=== PATIENT | female | born 1995 | race Caucasian/White ===

== ENCOUNTER 2016-11-02 05:44 | Outpatient (CLI) | payer OTHER, MEDICAID ==
[~2016-11-02] VITALS: Ht 160 cm; Wt 85.0 kg
[~2016-11-02 05:44] MED LIST: ONDA4TAB10 PO; PREN-1 PO; PRENATAL; SUMA25TA3 PO
[2016-11-02 05:53] VITALS: BP 135/80
[2016-11-02] MEDS ORDERED: HYDROcodone/APAP 5/325 TABLET ONE (06:08)
[2016-11-02] MEDS ORDERED: HYDROcodone/APAP 5/325 TABLET PO ONE (07:00)
== END 2016-11-02 06:35 | disposition home or self-care (01) ==
LOC: LDOP 05:44
PROVIDERS: ATTEND Student in an Organized Health Care Education/Training Program
DX: O26.893 Other specified pregnancy related conditions, third trimester (principal); O62.9 Abnormality of forces of labor, unspecified; R10.12 Left upper quadrant pain; R07.81 Pleurodynia; Z3A.38 38 weeks gestation of pregnancy
CPT/HCPCS: 59025; 99211; G0463

== ENCOUNTER 2016-11-09 17:05 | Outpatient (CLI) | payer OTHER, MEDICAID ==
[2016-11-09] MEDS ORDERED: MEPERIDINE/PF 100 MG/ML ONE (20:56)
[2016-11-09] MEDS ORDERED: PROMETHAZINE 25 MG/ML, 1ML ONE (20:57)
[2016-11-09] MEDS ORDERED: MEPERIDINE/PF 50 MG/ML IM PRN (21:00)
[2016-11-09] MEDS ORDERED: PROMETHAZINE 25 MG/ML, 1ML IM ONE (21:00)
[2016-11-09] MEDS ORDERED: MEPERIDINE/PF 100 MG/ML IM ONE (21:10)
== END 2016-11-09 21:20 | disposition home or self-care (01) ==
LOC: LDOP 17:05
PROVIDERS: ATTEND Student in an Organized Health Care Education/Training Program
DX: O26.893 Other specified pregnancy related conditions, third trimester (principal); O62.9 Abnormality of forces of labor, unspecified; R10.9 Unspecified abdominal pain; Z3A.39 39 weeks gestation of pregnancy
CPT/HCPCS: 59025; 99211; J2175; J2550; G0463

== ENCOUNTER 2016-11-10 04:02 | Inpatient (IN) | payer OTHER, MEDICAID ==
[~2016-11-10] VITALS: Ht 160 cm; Wt 82.7 kg
[2016-11-10] MEDS ORDERED: FENTANYL PF 100 MCG/2ML ONE (05:31)
[2016-11-10] MEDS ORDERED: LACTATED RINGERS 1,000 ML IV SCH (05:31)
[2016-11-10] MEDS ORDERED: D5%-LACTATED RINGERS 1,000 ML IV SCH (05:31)
[2016-11-10] MEDS ORDERED: OXYTOCIN 30U/ 0.9% NaCL 500ML 500 ML IV ONE (05:31)
[2016-11-10] MEDS ORDERED: NEWBORN KIT ONE (05:45)
[2016-11-10] MEDS ORDERED: OXYTOCIN 30U/ 0.9% NaCL 500ML 500 ML ONE (05:45)
[2016-11-10] MEDS ORDERED: FENTANYL PF 100 MCG/2ML IVPush PRN (06:00)
[2016-11-10] MEDS ORDERED: TERBUTALINE 1 MG/ML, 1ML IVPush PRN (06:00)
[2016-11-10] MEDS ORDERED: FENTANYL PF 100 MCG/2ML IV PRN (06:00)
[2016-11-10] MEDS ORDERED: ONDANSETRON 2MG/ML, 2ML IVPush PRN (06:00)
[2016-11-10] MEDS ORDERED: LIDOCAINE 1%, 20ML ONE (06:16)
[2016-11-10] MEDS ORDERED: MISOPROSTOL 200 MCG TABLET ONE (06:16)
[2016-11-10] MEDS ORDERED: OXYTOCIN 30U/ 0.9% NaCL 500ML 500 ML IV SCH (07:37)
[2016-11-10] MEDS ORDERED: MISOPROSTOL 200 MCG TABLET PR PRN (08:00)
[2016-11-10] MEDS ORDERED: HYDROcodone/APAP 5/325 TABLET PO PRN ×2 (08:00)
[2016-11-10] MEDS ORDERED: ONDANSETRON 2MG/ML, 2ML IV PRN (08:00)
[2016-11-10] MEDS ORDERED: CALCIUM CARBONATE 500 MG TAB.CHEW PO PRN (08:00)
[2016-11-10] MEDS ORDERED: METHYLERGONOVINE 0.2 MG/ML IM PRN (08:00)
[2016-11-10] MEDS ORDERED: CARBOPROST TROMETHAMINE 250 MCG/ML, 1ML IM PRN (08:00)
[2016-11-10] MEDS ORDERED: DOCUSATE 100 MG CAPSULE PO PRN (08:00)
[2016-11-10 09:00] VITALS: BP 110/73
[2016-11-10] MEDS ORDERED: PRENATAL VIT/IRON/FA 1 EACH TABLET PO SCH (09:00)
[2016-11-10 12:45] VITALS: BP 102/60
[2016-11-10] MEDS: IBUPROFEN 600 MG TABLET PO PRN (15:29)
[2016-11-10 18:11] VITALS: BP 114/79
[2016-11-10 20:00] VITALS: BP 122/80
[2016-11-11] VITALS: BP 110/68
[2016-11-11 08:15] VITALS: BP 122/85
[2016-11-11] MEDS: IBUPROFEN 600 MG TABLET PO PRN (08:37)
[2016-11-11] MEDS ORDERED: IBUP-1222 PO (11:11)
[2016-11-11] MEDS ORDERED: DOCU-30 PO (11:11)
== END 2016-11-11 15:10 | disposition home or self-care (01) | DRG 775 ==
LOC: LDOP 04:02 → LDIP 05:38 → 2NW 08:50
PROVIDERS: ADMIT Student in an Organized Health Care Education/Training Program; ATTEND Student in an Organized Health Care Education/Training Program
PROC: 10E0XZZ Delivery of Products of Conception, External Approach (ICD-10-PCS; principal; 2016-11-10)
PROC: 0HQ9XZZ Repair Perineum Skin, External Approach (ICD-10-PCS; 2016-11-10)
DX: O62.3 Precipitate labor (principal); O70.0 First degree perineal laceration during delivery; Z37.0 Single live birth; Z81.8 Family history of other mental and behavioral disorders; Z3A.39 39 weeks gestation of pregnancy
CPT/HCPCS: 36415; 85025; 86850; 86900; J3010; J7120

== ENCOUNTER 2016-11-13 17:11 | Emergency (ER) | payer OTHER, MEDICAID ==
[~2016-11-13] VITALS: Ht 162.6 cm; Wt 71.6 kg
[~2016-11-13 17:11] MED LIST changes: +DOCU-30 PO; +IBUP-1222 PO
[2016-11-13] MEDS ORDERED: ONDANSETRON 2MG/ML, 2ML IVPush ONE (18:00)
[2016-11-13] MEDS ORDERED: SODIUM CHLORIDE FLUSH 10ML SYR IVF ONE (18:00)
[2016-11-13] MEDS ORDERED: SODIUM CHLORIDE 0.9% 1,000ML IVBOLUS ONE (18:00)
[2016-11-13] MEDS ORDERED: ACETAMINOPHEN 500 MG TABLET PO ONE (18:00)
[2016-11-13] MEDS ORDERED: ONDANSETRON 2MG/ML, 2ML ONE (18:35)
[2016-11-13] MEDS ORDERED: ACETAMINOPHEN 500 MG TABLET ONE (18:35)
[2016-11-13 18:36] LABS: ASPARTATE AMINO TRANSFERASE 35 U/L (15-37); BLOOD UREA NITROGEN 9 mg/dL (7-18)
[2016-11-13 19:15] LABS: PATH.CAST-FLAG NOT PRESENT; SPERM-FLAG NOT PRESENT; SRC-FLAG NOT PRESENT; XTAL-FLAG NOT PRESENT; YLC-FLAG NOT PRESENT
[2016-11-13] MEDS ORDERED: CEFTRIAXONE 1,000 MG in SODIUM CHLORIDE 0.9% 50 ML IV ONE (20:00)
[2016-11-13] MEDS ORDERED: MISOPROSTOL 100 MCG TABLET PO STA (20:27)
[2016-11-13 21:56] VITALS: BP 126/85
== END 2016-11-13 21:58 | disposition home or self-care (01) ==
LOC: ED 21:00
DX: O36.4XX0 Maternal care for intrauterine death, not applicable or unspecified (principal); Z37.9 Outcome of delivery, unspecified; N30.00 Acute cystitis without hematuria
CPT/HCPCS: 36415; 71010; 76830; 80053; 81001; 83605; 85025; 87040; 87086; 93005; 96361; 96365; 99285; J0696; J7030

== ENCOUNTER 2020-03-23 10:37 | Emergency (ER) | payer MEDICAID ==
[~2020-03-23] VITALS: Ht 162.6 cm; Wt 85.0 kg
[~2020-03-23 10:37] MED LIST changes: +DOCU-131 PO; -DOCU-30 PO
[2020-03-23] MEDS ORDERED: ONDANSETRON 2MG/ML, 2ML IVPush ONE (11:00)
[2020-03-23] MEDS ORDERED: FAMOTIDINE 20 MG/2 ML IV ONE (11:00)
[2020-03-23] MEDS ORDERED: MORPHINE SULFATE 4 MG/ML, 1ML IVPush PRN (11:00)
[2020-03-23] MEDS ORDERED: SODIUM CHLORIDE FLUSH 10ML SYR IVF ONE (11:00)
[2020-03-23 11:24] LABS: BASOPHILS % (AUTO) 1 % (0-1); EOSINOPHILS % (AUTO) 1 % (1-7); LYMPHOCYTES % (AUTO) 15 % (22-44); MEAN CORPUSCULAR HEMOGLOBIN 29.1 pg (27.0-34.8); MEAN CORPUSCULAR HGB CONC 33.4 g/dL (32.4-35.8); MONOCYTES % (AUTO) 8 % (2-9); NEUTROPHILS % (AUTO) 75 % (42-75); PLATELET COUNT 226 x10^3/uL (130-400); RED BLOOD COUNT 4.93 x10^6/uL (3.82-5.3); RED CELL DISTRIBUTION WIDTH 13.8 % (9.6-15.2)
[2020-03-23 11:26] LABS: MD NO
[2020-03-23 11:33] LABS: ALANINE AMINOTRANSFERASE 43 U/L (12-78); ALBUMIN 3.9 g/dL (3.4-5.0); ANION GAP 6 mmol/L (5-15); CALCIUM 8.9 mg/dL (8.5-10.1); CHLORIDE 109 mmol/L (98-107); CREATININE 0.84 mg/dL (0.55-1.02)
[2020-03-23 11:38] LABS: ALKALINE PHOSPHATASE 76 U/L (45-117); BILIRUBIN,TOTAL 0.6 mg/dL (0.2-1.0); TOTAL PROTEIN 7.8 g/dL (6.4-8.2)
[2020-03-23] MEDS ORDERED: ONDANSETRON 2MG/ML, 2ML ONE (12:20)
[2020-03-23] MEDS ORDERED: FAMOTIDINE 20 MG/2 ML ONE (12:21)
[2020-03-23] MEDS ORDERED: MORPHINE SULFATE 4 MG/ML, 1ML ONE (12:21)
[2020-03-23 13:57] VITALS: BP 107/68
[2020-03-23 14:17] LABS: MICROSCOPIC NOT IND
== END 2020-03-23 13:59 | disposition home or self-care (01) ==
LOC: ED 13:29
DX: K80.20 Calculus of gallbladder without cholecystitis without obstruction (principal); R10.31 Right lower quadrant pain; R11.0 Nausea; R63.0 Anorexia
CPT/HCPCS: 36415; 76700; 80053; 81003; 83690; 84703; 85025; 96374; 96375; 99284; J2270; J2405; J3490

== ENCOUNTER 2020-07-18 06:12 | Emergency (ER) | payer MEDICAID ==
[~2020-07-18] VITALS: Ht 162.6 cm; Wt 84.8 kg
--- NOTE | 2020-07-18 06:54 | NUR ---
Report received from FAVIO RN, assumed care of PT.
[2020-07-18 06:56] LABS: BASOPHILS % (AUTO) 1 % (0-1); EOSINOPHILS % (AUTO) 3 % (1-7); LYMPHOCYTES % (AUTO) 11 % (22-44); MEAN CORPUSCULAR HEMOGLOBIN 29.3 pg (27.0-34.8); MEAN PLATELET VOLUME 10.4 fL (7.4-10.4); MONOCYTES % (AUTO) 6 % (2-9); NEUTROPHILS % (AUTO) 80 % (42-75); PLATELET COUNT 293 x10^3/uL (130-400); RED BLOOD COUNT 4.77 x10^6/uL (3.82-5.3); RED CELL DISTRIBUTION WIDTH 14.1 % (9.6-15.2)
[2020-07-18 07:00] LABS: MD NO
[2020-07-18] MEDS ORDERED: SODIUM CHLORIDE FLUSH 10ML SYR IVF ONE (07:00)
[2020-07-18] MEDS ORDERED: HALOPERIDOL 5 MG/ML IV ONE (07:00)
[2020-07-18] MEDS ORDERED: SODIUM CHLORIDE 0.9% 1,000ML IVBOLUS ONE (07:00)
[2020-07-18 07:06] LABS: ALANINE AMINOTRANSFERASE 29 U/L (12-78); ALBUMIN 4.4 g/dL (3.4-5.0); ANION GAP 6 mmol/L (5-15); CALCIUM 9.3 mg/dL (8.5-10.1); CHLORIDE 109 mmol/L (98-107); CREATININE 0.87 mg/dL (0.55-1.02)
[2020-07-18 07:11] LABS: ALKALINE PHOSPHATASE 67 U/L (45-117); BILIRUBIN,TOTAL 0.5 mg/dL (0.2-1.0); TOTAL PROTEIN 7.8 g/dL (6.4-8.2)
--- NOTE | 2020-07-18 07:21 | NUR ---
Pt medicated for nausea. VS updated. Family at bedside.
[2020-07-18] MEDS ORDERED: PROMETHAZINE 25 MG/ML, 1ML IM ONE (07:30)
[2020-07-18] MEDS ORDERED: PROMETHAZINE 25 MG/ML, 1ML ONE (07:39)
--- NOTE | 2020-07-18 07:48 | NUR ---
Nausea improved, 2nd anti-emetic given. Per mom, pt has been very depressed as of late.
[2020-07-18] MEDS ORDERED: METOCLOPRAMIDE 5 MG/ML, 2ML IVPush ONE (09:00)
[2020-07-18] MEDS ORDERED: DIPHENHYDRAMINE 50 MG/ML, 1ML IVPush ONE (09:00)
[2020-07-18] MEDS ORDERED: METOCLOPRAMIDE 5 MG/ML, 2ML ONE (09:15)
[2020-07-18] MEDS ORDERED: DIPHENHYDRAMINE 50 MG/ML, 1ML ONE (09:15)
--- NOTE | 2020-07-18 09:30 | NUR ---
EKG complete, Reglan, Benadryl given. VS updated.
--- NOTE | 2020-07-18 09:39 | NUR ---
TASK RN NOTE: UPON ENTRY TO ROOM, BED FOUND TO BE EMPTY. PT HAS AMBULATED TO BATHROOM WITH MOTHER.
[2020-07-18 10:32] VITALS: BP 111/70
[2020-07-19] MEDS ORDERED: AMIT25TA PO (13:03)
[2020-07-19] MEDS ORDERED: SERT100T32 PO (13:03)
[2020-07-19] MEDS ORDERED: CHOL10003 PO (13:03)
[2020-07-19] MEDS ORDERED: SUMA25TA3 PO (14:16)
== END 2020-07-18 10:48 | disposition home or self-care (01) ==
LOC: ED 08:25
DX: R11.2 Nausea with vomiting, unspecified (principal); E87.6 Hypokalemia; Z90.49 Acquired absence of other specified parts of digestive tract
CPT/HCPCS: 36415; 80053; 83690; 84703; 85025; 93005; 96361; 96372; 96374; 96375; 99284; J1200; J1630; J2550; J2765; J7030

== ENCOUNTER 2020-07-18 14:19 | Emergency (ER) | payer MEDICAID ==
[~2020-07-18] VITALS: Ht 162.6 cm; Wt 85.1 kg
[2020-07-18 14:23] VITALS: BP 105/64
--- NOTE | 2020-07-18 14:45 | NUR ---
Pt to room from lobby.
--- NOTE | 2020-07-18 15:18 | NUR ---
Pt and her mother upset about having to wait in the lobby and now that they are in a room having to wait to see the ER provider. This RN provided emotional support and sympathetic listening as well as explaining ER process. Pt denies other needs at this time.
--- NOTE | 2020-07-18 15:28 | NUR ---
Pt arguing in room with her mother. Pt and her mother ambulatory out into hallway. Pt's mother states "She's leaving. She's upset and sick and you don't care." This RN attempted to readvise pt and her mother about the ER process as well as provide sympathetic listening. Pt ambulatory down hallway accompanied by her mother with steady gait. This RN attempted to have pt sign LWBS form. Pt declines. Pt and her mother ambulatory out of unit with steady gait.
[2020-07-19] MEDS ORDERED: SERT100T32 PO (13:03)
[2020-07-19] MEDS ORDERED: AMIT25TA PO (13:03)
[2020-07-19] MEDS ORDERED: CHOL10003 PO (13:03)
[2020-07-19] MEDS ORDERED: SUMA25TA3 PO (14:16)
== END 2020-07-18 15:33 | disposition left against medical advice (07) ==
LOC: ED 15:15
DX: R11.2 Nausea with vomiting, unspecified (principal); Z53.21 Procedure and treatment not carried out due to patient leaving prior to being seen by health care provider

== ENCOUNTER 2020-07-19 01:06 | Inpatient (IN) | payer MEDICAID ==
[~2020-07-19] VITALS: Ht 162.6 cm; Wt 84.3 kg
[2020-07-19] MEDS ORDERED: METOCLOPRAMIDE 5 MG/ML, 2ML IVPush ONE (02:00)
[2020-07-19] MEDS ORDERED: KETOROLAC 30 MG/1 ML IVPush ONE (02:00)
[2020-07-19] MEDS ORDERED: PROMETHAZINE 25 MG/ML, 1ML IM ONE (02:00)
[2020-07-19] MEDS ORDERED: SODIUM CHLORIDE 0.9% 1,000ML IVBOLUS ONE (02:00)
[2020-07-19] MEDS ORDERED: SODIUM CHLORIDE FLUSH 10ML SYR IVF ONE (02:00)
[2020-07-19] MEDS ORDERED: KETOROLAC 30 MG/1 ML ONE (02:06)
[2020-07-19] MEDS ORDERED: PROMETHAZINE 25 MG/ML, 1ML ONE ×2 (02:06→11:21)
[2020-07-19] MEDS ORDERED: METOCLOPRAMIDE 5 MG/ML, 2ML ONE (02:06)
[2020-07-19 02:26] LABS: BASOPHILS % (AUTO) 1 % (0-1); EOSINOPHILS % (AUTO) 0 % (1-7); LYMPHOCYTES % (AUTO) 11 % (22-44); MEAN CORPUSCULAR HEMOGLOBIN 29.7 pg (27.0-34.8); MEAN CORPUSCULAR HGB CONC 33.9 g/dL (32.4-35.8); MEAN PLATELET VOLUME 10.6 fL (7.4-10.4); MONOCYTES % (AUTO) 8 % (2-9); NEUTROPHILS % (AUTO) 81 % (42-75); PLATELET COUNT 305 x10^3/uL (130-400); RED BLOOD COUNT 4.74 x10^6/uL (3.82-5.3)
[2020-07-19 02:29] LABS: MD NO
[2020-07-19 02:30] LABS: ALANINE AMINOTRANSFERASE 26 U/L (12-78); ALBUMIN 4.7 g/dL (3.4-5.0); ANION GAP 12 mmol/L (5-15); CALCIUM 9.7 mg/dL (8.5-10.1); CHLORIDE 109 mmol/L (98-107); CREATININE 0.76 mg/dL (0.55-1.02)
[2020-07-19 02:32] LABS: ALKALINE PHOSPHATASE 70 U/L (45-117); BILIRUBIN,TOTAL 0.7 mg/dL (0.2-1.0); TOTAL PROTEIN 8.1 g/dL (6.4-8.2)
--- NOTE | 2020-07-19 02:33 | NUR ---
PT. TO ED WITH C/O N/V/D X 2 MONTHS. SEEN YESTERDAY FOR SAME. MEDICATED PER MAR WITH IM PHENERGAN. UNABLE TO OBTAIN IV ACCESS X 2 ATTEMPTS. SPO2/B/P/CARDIAC MONITORS IN PLACE. CALL LIGHT IN REACH. FAMILY AT FOR SUPPORT. WARM BLANKET PROVIDED.
--- NOTE | 2020-07-19 02:55 | NUR ---
REPORT TO VICENTE GALEAS TO ASSUME CARE OF PT. AT THIS TIME.
[2020-07-19] MEDS ORDERED: ACETAMINOPHEN 325 MG TABLET PO PRN (03:00)
[2020-07-19] MEDS: SODIUM CHLORIDE 0.9% 1,000 ML IV SCH ×3 (03:00→23:08)
[2020-07-19] MEDS ORDERED: ONDANSETRON ODT 4 MG PO PRN (03:00)
[2020-07-19] MEDS ORDERED: ONDANSETRON 2MG/ML, 2ML IVPush PRN (03:00)
[2020-07-19] MEDS ORDERED: BISACODYL 10 MG SUPP PR PRN (03:00)
[2020-07-19] MEDS ORDERED: OXYcodone IR 5MG TABLET PO PRN (03:00)
[2020-07-19] MEDS ORDERED: morphine SULFATE 10 MG/ML, 1ML IVPush PRN (03:00)
[2020-07-19] MEDS ORDERED: POTASSIUM CHLORIDE 40 MEQ in SODIUM CHLORIDE 0.9% 500 ML IV ONE (03:00)
[2020-07-19] MEDS ORDERED: hydrALAzine 20 MG/ML, 1ML IVPush PRN (03:00)
[2020-07-19] MEDS ORDERED: POLYETHYLENE GLYCOL 17 GM PACKET PO PRN (03:00)
--- NOTE | 2020-07-19 07:23 | NUR ---
REPORT FROM ADAL. PT STATES SHE FEELS OK, NO N/V.
--- NOTE | 2020-07-19 07:45 | NUR ---
PT ON HOSPITAL BED FOR COMFORT. AMBULATED TO [facility]
[2020-07-19] MEDS ORDERED: LORazepam 1MG TABLET ONE (08:18)
--- NOTE | 2020-07-19 08:39 | NUR ---
PT FEELING ANXIOUS. ADMIN ATIVAN PER ORDERS. IV INFILTRATED. WILL NEED NEW US IV
[2020-07-19] MEDS ORDERED: LORazepam 1MG TABLET PO ONE (09:00)
[2020-07-19 10:05] LABS: MICROSCOPIC INDICATED
--- NOTE | 2020-07-19 10:09 | NUR ---
TASK RN: REPLACEMENT PIV PLACED WITH ULTRASOUND. PRIMARY RN MADE AWARE
[2020-07-19] MEDS: PROMETHAZINE 25 MG/ML, 1ML IM PRN ×4 (11:24→23:08)
--- NOTE | 2020-07-19 11:30 | NUR ---
PT STATES SHE FEELS NAUSEAUS. MEDICATED W PHENERGEN. GIVEN ICE WATER. VSS.
[2020-07-19 12:58] LABS: HCT (SEDRATE) 40.8 % (34.6-47.8)
[2020-07-19] MEDS ORDERED: SERT100T32 PO (13:03)
[2020-07-19] MEDS ORDERED: AMIT25TA PO (13:03)
[2020-07-19] MEDS ORDERED: CHOL10003 PO (13:03)
[2020-07-19] MEDS: SENNA/DOCUSATE TABLET PO SCH (13:05)
[2020-07-19] MEDS ORDERED: MOVIPREP POWDER 1 PREP KIT PO ONE (13:30)
[2020-07-19 14:00] VITALS: BP 112/69
[2020-07-19] MEDS ORDERED: SUMA25TA3 PO (14:16)
[2020-07-19 14:55] LABS: C-REACTIVE PROTEIN, QUANT 0.42 mg/dL (0.02-0.49)
[2020-07-19] MEDS ORDERED: OMNIPAQUE 350 MG/ML, 100ML BOTTLE ONE (15:54)
[2020-07-19 17:58] LABS: CLOSTRIDIUM DIFFICILE ANTIGEN NEGATIVE; CLOSTRIDIUM DIFFICILE TOXIN NEGATIVE (Negative)
[2020-07-19 18:54] VITALS: BP 118/82
[2020-07-19] MEDS: METOCLOPRAMIDE 5 MG/ML, 2ML IVPush PRN (20:56)
[2020-07-20 01:14] VITALS: BP 111/68
[2020-07-20] MEDS: PROMETHAZINE 25 MG/ML, 1ML IM PRN ×4 (02:06→20:38)
[2020-07-20] MEDS: METOCLOPRAMIDE 5 MG/ML, 2ML IVPush PRN ×2 (04:44→16:18)
[2020-07-20 05:09] LABS: BASOPHILS % (AUTO) 0 % (0-1); EOSINOPHILS % (AUTO) 0 % (1-7); LYMPHOCYTES % (AUTO) 11 % (22-44); MD NO; MEAN CORPUSCULAR HEMOGLOBIN 29.9 pg (27.0-34.8); MEAN PLATELET VOLUME 10.3 fL (7.4-10.4); MONOCYTES % (AUTO) 7 % (2-9); NEUTROPHILS % (AUTO) 82 % (42-75); PLATELET COUNT 256 x10^3/uL (130-400); RED BLOOD COUNT 4.32 x10^6/uL (3.82-5.3); RED CELL DISTRIBUTION WIDTH 14.1 % (9.6-15.2)
[2020-07-20 05:18] LABS: ALBUMIN 4.4 g/dL (3.4-5.0); ANION GAP 12 mmol/L (5-15); CALCIUM 8.4 mg/dL (8.5-10.1); CHLORIDE 110 mmol/L (98-107)
[2020-07-20] MEDS: SODIUM CHLORIDE 0.9% 1,000 ML IV SCH (05:31)
[2020-07-20 05:32] LABS: ALANINE AMINOTRANSFERASE 31 U/L (12-78); ALKALINE PHOSPHATASE 63 U/L (45-117); BILIRUBIN,TOTAL 0.8 mg/dL (0.2-1.0); CREATININE 0.61 mg/dL (0.55-1.02); TOTAL PROTEIN 7.6 g/dL (6.4-8.2)
[2020-07-20 07:58] VITALS: BP 126/79
[2020-07-20] MEDS ORDERED: LORazepam 2 MG/ML, 1ML ONE (08:26)
[2020-07-20] MEDS ORDERED: LORazepam 2 MG/ML, 1ML IVPush ONE (08:30)
[2020-07-20] MEDS: SENNA/DOCUSATE TABLET PO SCH (09:00)
[2020-07-20] MEDS ORDERED: CHLORHEXIDINE 15 ML UDC ONE (09:37)
[2020-07-20] MEDS ORDERED: FENTANYL PF 100 MCG/2ML ONE (09:47)
[2020-07-20] MEDS ORDERED: PROPOFOL 10 MG/ML, 20ML ONE ×2 (09:47→10:04)
[2020-07-20] MEDS ORDERED: LIDOCAINE-MPF 2% ,5ML ONE ×2 (09:47)
[2020-07-20] MEDS ORDERED: ACETAMINOPHEN 325 MG TABLET PO PRN (10:30)
[2020-07-20] MEDS ORDERED: FENTANYL PF 100 MCG/2ML IV PRN (10:30)
[2020-07-20] MEDS ORDERED: ONDANSETRON 2MG/ML, 2ML IVPush PRN (10:30)
[2020-07-20 11:24] VITALS: BP 138/69
[2020-07-20 15:31] VITALS: BP 114/73
[2020-07-20 19:59] VITALS: BP 120/84
[2020-07-20] MEDS: COLESTIPOL 1 GM TABLET PO SCH (20:40)
[2020-07-20] MEDS: ALUMINUM/MAG/SIMETHICONE 30 ML UDC PO PRN (20:53)
[2020-07-20 22:06] LABS: TROPONIN I < 0.015 ng/mL (0.000-0.045)
[2020-07-21] MEDS: METOCLOPRAMIDE 5 MG/ML, 2ML IVPush PRN (00:25)
[2020-07-21 00:39] VITALS: BP 118/79
[2020-07-21] MEDS ORDERED: LORazepam 0.5MG TABLET ONE (01:19)
[2020-07-21] MEDS: PROMETHAZINE 25 MG/ML, 1ML IM PRN (01:23)
[2020-07-21] MEDS ORDERED: LORazepam 0.5MG TABLET PO ONE (01:30)
[2020-07-21 06:21] LABS: BASOPHILS % (AUTO) 1 % (0-1); EOSINOPHILS % (AUTO) 1 % (1-7); LYMPHOCYTES % (AUTO) 26 % (22-44); MEAN CORPUSCULAR HEMOGLOBIN 29.6 pg (27.0-34.8); MEAN CORPUSCULAR HGB CONC 33.5 g/dL (32.4-35.8); MEAN PLATELET VOLUME 10.7 fL (7.4-10.4); MONOCYTES % (AUTO) 9 % (2-9); NEUTROPHILS % (AUTO) 63 % (42-75); PLATELET COUNT 245 x10^3/uL (130-400); RED CELL DISTRIBUTION WIDTH 14.4 % (9.6-15.2)
[2020-07-21 06:23] LABS: MD NO
[2020-07-21 06:28] LABS: ALBUMIN 4.4 g/dL (3.4-5.0); ANION GAP 8 mmol/L (5-15); CALCIUM 8.8 mg/dL (8.5-10.1); CHLORIDE 109 mmol/L (98-107)
[2020-07-21 06:32] LABS: ALANINE AMINOTRANSFERASE 32 U/L (12-78); ALKALINE PHOSPHATASE 65 U/L (45-117); BILIRUBIN,TOTAL 1.2 mg/dL (0.2-1.0); CREATININE 0.72 mg/dL (0.55-1.02); TOTAL PROTEIN 7.4 g/dL (6.4-8.2)
[2020-07-21] MEDS ORDERED: POTASSIUM CHLORIDE 20 MEQ TAB.ER.PRT PO ONE (07:30)
[2020-07-21] MEDS: SENNA/DOCUSATE TABLET PO SCH (07:38)
[2020-07-21 07:58] VITALS: BP 118/78
[2020-07-21] MEDS: COLESTIPOL 1 GM TABLET PO SCH ×2 (08:10→21:21)
[2020-07-21] MEDS: ALUMINUM/MAG/SIMETHICONE 30 ML UDC PO PRN ×2 (08:42→16:31)
[2020-07-21] MEDS: FAMOTIDINE 20 MG/2 ML IVPush SCH ×2 (09:08→21:21)
[2020-07-21] MEDS: LORazepam 2 MG/ML, 1ML IVPush PRN ×2 (09:08→21:26)
[2020-07-21 09:09] VITALS: BP 126/73
[2020-07-21 13:06] VITALS: BP 135/72
[2020-07-21 18:30] VITALS: BP 140/79
[2020-07-21] MEDS: AMITRIPTYLINE 25 MG TABLET PO SCH (21:21)
[2020-07-22 00:37] VITALS: BP 128/81
[2020-07-22] MEDS: ALUMINUM/MAG/SIMETHICONE 30 ML UDC PO PRN ×2 (05:11→18:07)
[2020-07-22 06:41] VITALS: BP 107/71
[2020-07-22 07:12] LABS: BASOPHILS % (AUTO) 1 % (0-1); EOSINOPHILS % (AUTO) 4 % (1-7); LYMPHOCYTES % (AUTO) 24 % (22-44); MEAN CORPUSCULAR HEMOGLOBIN 29.8 pg (27.0-34.8); MEAN CORPUSCULAR HGB CONC 33.4 g/dL (32.4-35.8); MEAN PLATELET VOLUME 10.3 fL (7.4-10.4); MONOCYTES % (AUTO) 11 % (2-9); NEUTROPHILS % (AUTO) 60 % (42-75); PLATELET COUNT 225 x10^3/uL (130-400); RED BLOOD COUNT 4.63 x10^6/uL (3.82-5.3); RED CELL DISTRIBUTION WIDTH 14.1 % (9.6-15.2)
[2020-07-22 07:22] LABS: ANION GAP 8 mmol/L (5-15); CALCIUM 8.8 mg/dL (8.5-10.1); CHLORIDE 109 mmol/L (98-107)
[2020-07-22 07:24] LABS: MD NO
[2020-07-22 07:26] LABS: ALANINE AMINOTRANSFERASE 29 U/L (12-78); ALKALINE PHOSPHATASE 60 U/L (45-117); BILIRUBIN,TOTAL 0.8 mg/dL (0.2-1.0); CREATININE 0.71 mg/dL (0.55-1.02); TOTAL PROTEIN 7.1 g/dL (6.4-8.2)
[2020-07-22] MEDS: COLESTIPOL 1 GM TABLET PO SCH ×2 (08:16→20:40)
[2020-07-22] MEDS: FAMOTIDINE 20 MG/2 ML IVPush SCH ×2 (08:16→20:41)
[2020-07-22] MEDS: SENNA/DOCUSATE TABLET PO SCH (08:24)
[2020-07-22] MEDS ORDERED: POTASSIUM CHLORIDE 20 MEQ TAB.ER.PRT PO ONE (08:30)
[2020-07-22] MEDS ORDERED: SERTRALINE 100MG TABLET PO SCH (09:00)
[2020-07-22] MEDS: METOCLOPRAMIDE 5 MG/ML, 2ML IVPush PRN (10:59)
[2020-07-22 13:46] VITALS: BP 106/67
[2020-07-22 19:30] VITALS: BP 118/69
[2020-07-22] MEDS: AMITRIPTYLINE 25 MG TABLET PO SCH (20:40)
[2020-07-23 02:16] VITALS: BP 121/72
[2020-07-23 05:37] LABS: ANION GAP 5 mmol/L (5-15); CALCIUM 9.3 mg/dL (8.5-10.1); CHLORIDE 110 mmol/L (98-107); CREATININE 0.73 mg/dL (0.55-1.02)
[2020-07-23 06:57] VITALS: BP 108/69
[2020-07-23] MEDS ORDERED: ESOMEPRAZOLE 40 MG IV IVPush ONE (08:00)
[2020-07-23] MEDS: SENNA/DOCUSATE TABLET PO SCH (09:00)
[2020-07-23] MEDS: COLESTIPOL 1 GM TABLET PO SCH (09:00)
[2020-07-23] MEDS: FAMOTIDINE 20 MG/2 ML IVPush SCH (10:00)
[2020-07-23 14:06] VITALS: BP 109/76
[2020-07-23] MEDS ORDERED: COLE1TAB2 PO (15:02)
[2020-07-23] MEDS ORDERED: OMEP-110 PO (15:02)
[2020-07-23] MEDS ORDERED: HYDR-826 PO (16:18)
[2020-07-23] MEDS ORDERED: SERT50TA28 PO (16:18)
== END 2020-07-23 18:00 | disposition home or self-care (01) | DRG 392 ==
LOC: ED 01:31 → EDIP 03:23 → 3WST 13:04 → 4NE 18:45 → 3N 07-20 15:30
PROVIDERS: ADMIT Internal Medicine; ATTEND Internal Medicine
PROC: 0DB68ZX Excision of Stomach, Via Natural or Artificial Opening Endoscopic, Diagnostic (ICD-10-PCS; 2020-07-20)
PROC: 0DBB8ZX Excision of Ileum, Via Natural or Artificial Opening Endoscopic, Diagnostic (ICD-10-PCS; 2020-07-20)
PROC: 0DBE8ZX Excision of Large Intestine, Via Natural or Artificial Opening Endoscopic, Diagnostic (ICD-10-PCS; 2020-07-20)
PROC: 0DBP8ZZ Excision of Rectum, Via Natural or Artificial Opening Endoscopic (ICD-10-PCS; 2020-07-20)
PROC: 0DB98ZX Excision of Duodenum, Via Natural or Artificial Opening Endoscopic, Diagnostic (ICD-10-PCS; principal; 2020-07-20 10:00)
DX: K30 Functional dyspepsia (principal); E87.2 Acidosis; Z20.822 Contact with and (suspected) exposure to COVID-19; G43.909 Migraine, unspecified, not intractable, without status migrainosus; E86.0 Dehydration; F41.9 Anxiety disorder, unspecified; E87.6 Hypokalemia; D12.8 Benign neoplasm of rectum; K64.1 Second degree hemorrhoids; L53.9 Erythematous condition, unspecified; K29.50 Unspecified chronic gastritis without bleeding; F32.9 Major depressive disorder, single episode, unspecified; F12.90 Cannabis use, unspecified, uncomplicated; T40.7X5A Adverse effect of cannabis (derivatives), initial encounter; Y92.89 Other specified places as the place of occurrence of the external cause; Z90.49 Acquired absence of other specified parts of digestive tract; Z88.8 Allergy status to other drugs, medicaments and biological substances; Z80.0 Family history of malignant neoplasm of digestive organs; Z79.899 Other long term (current) drug therapy
CPT/HCPCS: 36415; 74021; 96374; 96375; 99285; J3490; 74177; 78264; 80048; 80053; 81001; 81025; 82533; 83036; 83540; 83550; 83690; 83735; 84100; 84443; 84484; 84703; 85025; 85651; 86140; 87324; 87635; 88305; 93005; G0378; J1885; J2550; J2704; J3010; J3480; Q9967; A9541; J2060; J2270; J2765; J7030; J7040

== ENCOUNTER 2020-07-24 22:47 | Emergency (ER) | payer MEDICAID ==
[~2020-07-24] VITALS: Ht 162.6 cm; Wt 80.8 kg
[~2020-07-24 22:47] MED LIST changes: +AMIT25TA PO; +CHOL10003 PO; +COLE1TAB2 PO; +HYDR-826 PO; +OMEP-110 PO; +SERT100T32 PO; +SERT50TA28 PO
[2020-07-24 22:51] VITALS: BP 134/79
[2020-07-24] MEDS ORDERED: METOCLOPRAMIDE 5 MG/ML, 2ML IVPush ONE (23:30)
[2020-07-24] MEDS ORDERED: SODIUM CHLORIDE 0.9% 1,000ML IVBOLUS ONE (23:30)
[2020-07-24] MEDS ORDERED: KETOROLAC 30 MG/1 ML IVPush ONE (23:30)
[2020-07-24] MEDS ORDERED: METOCLOPRAMIDE 5 MG/ML, 2ML ONE (23:37)
[2020-07-24] MEDS ORDERED: KETOROLAC 30 MG/1 ML ONE (23:38)
[2020-07-24 23:43] LABS: BASOPHILS % (AUTO) 0 % (0-1); EOSINOPHILS % (AUTO) 1 % (1-7); LYMPHOCYTES % (AUTO) 9 % (22-44); MEAN CORPUSCULAR HGB CONC 34.5 g/dL (32.4-35.8); MEAN PLATELET VOLUME 10.6 fL (7.4-10.4); MONOCYTES % (AUTO) 6 % (2-9); NEUTROPHILS % (AUTO) 84 % (42-75); PLATELET COUNT 240 x10^3/uL (130-400); RED BLOOD COUNT 4.98 x10^6/uL (3.82-5.3)
[2020-07-24 23:44] LABS: MD NO
--- NOTE | 2020-07-24 23:48 | NUR ---
PT MEDICATED PER ORDERS. IV BOLUS INFUSING. PT UNDERSTANDS POC.
[2020-07-24 23:55] LABS: ALANINE AMINOTRANSFERASE 44 U/L (12-78); ALBUMIN 4.8 g/dL (3.4-5.0); ANION GAP 10 mmol/L (5-15); CALCIUM 9.3 mg/dL (8.5-10.1); CHLORIDE 105 mmol/L (98-107); CREATININE 0.72 mg/dL (0.55-1.02)
[2020-07-24 23:59] LABS: ALKALINE PHOSPHATASE 68 U/L (45-117); BILIRUBIN,TOTAL 0.7 mg/dL (0.2-1.0); TOTAL PROTEIN 8.3 g/dL (6.4-8.2)
== END 2020-07-25 01:28 | disposition home or self-care (01) ==
LOC: ED 23:34
DX: K31.84 Gastroparesis (principal); R11.15 Cyclical vomiting syndrome unrelated to migraine; R11.2 Nausea with vomiting, unspecified; R00.0 Tachycardia, unspecified; Z90.49 Acquired absence of other specified parts of digestive tract; Z88.8 Allergy status to other drugs, medicaments and biological substances
CPT/HCPCS: 36415; 80053; 83690; 84703; 85025; 96361; 96374; 96375; 99284; J1885; J2765; J7030